=== PATIENT | female | born 1990 | race Caucasian/White ===

== ENCOUNTER 2017-11-02 12:12 | Outpatient (CLI) | payer OTHER ==
[~2017-11-02] VITALS: Ht 172.7 cm; Wt 81.5 kg
[~2017-11-02 12:12] MED LIST: ACET325T14 PO; CALC300T5 PO; PREN1TAB60 PO
[2017-11-02 12:19] VITALS: BP 107/63
== END 2017-11-02 13:00 | disposition home or self-care (01) ==
LOC: LDOP 12:12
PROVIDERS: ATTEND Obstetrics & Gynecology
DX: O62.9 Abnormality of forces of labor, unspecified (principal); Z3A.39 39 weeks gestation of pregnancy
CPT/HCPCS: 59025; 99211; G0463